=== PATIENT | female | born 1965 | race Caucasian/White ===

== ENCOUNTER 2023-04-30 19:50 | Emergency (ER) | payer OTHER ==
[~2023-04-30] VITALS: Ht 162.6 cm; Wt 90.0 kg
[2023-04-30] MEDS ORDERED: IBUP-45 PO (20:14)
[2023-04-30 20:15] VITALS: TEMP 98.4
[2023-04-30] MEDS ORDERED: IBUPROFEN 600 MG TABLET PO ONE (23:00)
[2023-04-30] MEDS ORDERED: HYDROCODONE/ACETAMINOPHEN 5-325 MG TABLET PO ONE (23:00)
[2023-05-01] MEDS ORDERED: PSEU-191 PO (00:04)
[2023-05-01] MEDS ORDERED: IBUP-1554 PO (00:04)
[2023-05-01] MEDS ORDERED: HYDR-4723 PO (00:04)
[2023-05-01 00:10] VITALS: BP 130/96; PULSE 70; RESP 15
== END 2023-05-01 00:30 | disposition home or self-care (01) ==
LOC: EMS 19:51
DX: S00.11XA Contusion of right eyelid and periocular area, initial encounter (principal); J32.0 Chronic maxillary sinusitis; Z98.890 Other specified postprocedural states; W01.0XXA Fall on same level from slipping, tripping and stumbling without subsequent striking against object, initial encounter; Y93.89 Activity, other specified; Y92.89 Other specified places as the place of occurrence of the external cause; Y99.8 Other external cause status
CPT/HCPCS: 70450; 70486; 99284